=== PATIENT | male | born 1995 | race Caucasian/White ===

== ENCOUNTER 2022-07-14 13:38 | Emergency (ER) | payer OTHER, SELFPAY ==
[2022-07-14 15:11] VITALS: BP 143/90; PULSE 81; RESP 16; TEMP 36.6; O2SAT 97
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
== END 2022-07-14 18:39 | disposition home or self-care (01) ==
PROVIDERS: Emergency Provider Nurse Practitioner Family; PCP Family Medicine
DX: T23.251A Burn of second degree of right palm, initial encounter (principal); T31.0 Burns involving less than 10% of body surface; X08.8XXA Exposure to other specified smoke, fire and flames, initial encounter
CPT/HCPCS: 99281